=== PATIENT | male | born 1960 | race Caucasian/White ===

== ENCOUNTER 2017-06-03 16:14 | Emergency (ER) | payer BC ==
[~2017-06-03] VITALS: Ht 193 cm; Wt 142.5 kg
[~2017-06-03 16:14] MED LIST: DILA100C PO; LISI-360 PO; MELO15TA2 PO
[2017-06-03 16:39] VITALS: BP 123/57; PULSE 80; RESP 16; TEMP 98.8; O2SAT 96
[2017-06-03] MEDS ORDERED: LISI10TA3 PO (18:39)
[2017-06-03] MEDS ORDERED: PHEN200C3 PO (18:39)
--- NOTE | 2017-06-03 18:44 | PD ---
HPI Chief Complaint: Fall Time Seen by Provider: 18:37 Travel History International Travel<30 days: No Contact w/Intl Traveler<30days: No Traveled to known affect area: No History of Present Illness HPI 56-year-old male patient with history of what happened, he thinks he passed out. He also states that he injured his right shoulder and right knee. However , he is ambulatory in the ER. He denies any chest pains, trouble breathing, or other issues or injuries. Modifying Factors: None Associated Signs & Symptoms: Fall, head injury, right shoulder knee injury Risk Factors: None PFSH Past Medical History Seizures: Yes (pt on dilantin) Social History Alcohol Use: Yes (OCCASSIONAL) Tobacco Use: No Substance Use: No Allergies-Medications (Allergen,Severity, Reaction): Coded Allergies: No Known Allergies (Verified Adverse Reaction, Unknown, 06/03/17) Reported Meds & Prescriptions Reported Meds & Active Scripts Active Reported Phenytoin Extended 200 Mg Cap 200 Mg PO TID Lisinopril 10 Mg Tab 10 Mg PO DAILY Review of Systems Except as stated in HPI: all other systems reviewed are Neg Physical Exam Narrative GENERAL: Well-developed large white middle-aged male patient currently and mild distress. Awake and oriented 3. SKIN: Focused skin assessment warm/dry. HEAD: 3 cm laceration to the right forehead. Normocephalic. EYES: Pupils equal and round. No scleral icterus. No injection or drainage. ENT: No nasal bleeding or discharge. Mucous membranes pink and moist. NECK: Trachea midline. No JVD. Supple. No midline C-spine tenderness. CARDIOVASCULAR: Regular rate and rhythm. No murmur appreciated. RESPIRATORY: No accessory muscle use. Clear to auscultation. Breath sounds equal bilaterally. GASTROINTESTINAL: Abdomen soft, non-tender, nondistended. Hepatic and splenic margins not palpable. MUSCULOSKELETAL: No obvious deformities. No clubbing. No cyanosis. No edema. EXTREMITIES: No clubbing, cyanosis, or edema. No joint tenderness, effusion, or edema noted. Abrasions over the right knee and right shoulder area, nontender to palpation with nontender range of motion with no obvious deformities NEUROLOGICAL: Awake and alert. No obvious cranial nerve deficits. Motor grossly within normal limits. Normal speech. PSYCHIATRIC: Appropriate mood and affect; insight and judgment normal. Data Data Last Documented VS Vital Signs Date Time Temp Pulse Resp B/P (MAP) Pulse Ox O2 Delivery O2 Flow Rate FiO2 06/03/17 19:05 96 Room Air 06/03/17 16:39 98.8 80 16 123/57 (79) Orders Orders Electrocardiogram (06/03/17 18:37) Complete Blood Count With Diff (06/03/17 18:37) Comprehensive Metabolic Panel (06/03/17 18:37) Troponin I (06/03/17 18:37) Ct Brain W/O Iv Contrast(Rout) (06/03/17 18:37) Ecg Monitoring (06/03/17 18:37) Iv Access Insert/Monitor (06/03/17 18:37) Oximetry (06/03/17 18:37) Sodium Chloride 0.9% Flush (Ns Flush) (06/03/17 18:45) Knee, Complete (4vws) (06/03/17 18:37) Shoulder, Complete (>2vws) (06/03/17 18:37) Labs Laboratory Tests Test 06/03/17 18:50 White Blood Count 14.9 TH/MM3 Red Blood Count 5.09 MIL/MM3 Hemoglobin 14.5 GM/DL Hematocrit 44.2 % Mean Corpuscular Volume 86.8 FL Mean Corpuscular Hemoglobin 28.4 PG Mean Corpuscular Hemoglobin Concent 32.7 % Red Cell Distribution Width 13.6 % Platelet Count 245 TH/MM3 Mean Platelet Volume 7.3 FL Neutrophils (%) (Auto) 88.6 % Lymphocytes (%) (Auto) 5.9 % Monocytes (%) (Auto) 4.3 % Eosinophils (%) (Auto) 0.7 % Basophils (%) (Auto) 0.5 % Neutrophils # (Auto) 13.2 TH/MM3 Lymphocytes # (Auto) 0.9 TH/MM3 Monocytes # (Auto) 0.6 TH/MM3 Eosinophils # (Auto) 0.1 TH/MM3 Basophils # (Auto) 0.1 TH/MM3 CBC Comment DIFF FINAL Differential Comment MDM Medical Decision Making Medical Screen Exam Complete: Yes Emergency Medical Condition: Yes Medical Record Reviewed: Yes Interpretation(s) EKG shows NSR, no ST elevation or depression, and no arrhythmias. No significant T-wave inversions. Differential Diagnosis Head injury, forehead laceration, right knee and shoulder injury: Contusions versus concussion versus intracranial injuries versus fractures Narrative Course X-rays and CAT scans have been ordered for the patient. Lab work was also ordered since it is unclear whether he had a syncopal episode or simply tripped and fell. Physician Communication Physician Communication Case is signed out to Dr. Taylor at 7 PM pending workup. Diagnosis Primary Impression: Laceration of forehead without complication Additional Impressions: Abrasion of knee, right Shoulder contusion Condition: Stable Thea Ambrosio MD Jun 03, 2017 18:44
[2017-06-03] MEDS ORDERED: SODIUM CHLORIDE 0.9% FLUSH 10 ML FLUSH IVF PRN (18:45)
[2017-06-03 19:03] LABS: AUTOMATED NEUTROPHIL # 13.2 TH/MM3 (1.8-7.7); BASOPHIL # 0.1 TH/MM3 (0-0.2); BASOPHIL % 0.5 % (0.0-2.0); EOSINOPHIL # 0.1 TH/MM3 (0-0.4); EOSINOPHIL % 0.7 % (0.0-4.0); HEMATOCRIT 44.2 % (39.0-51.0); HEMOGLOBIN 14.5 GM/DL (13.0-17.0); LYMPH % 5.9 % (9.0-44.0); LYMPHOCYTE # 0.9 TH/MM3 (1.0-4.8); MEAN CELL VOLUME 86.8 FL (80.0-100.0); MEAN CORPUSCULAR HEMOGLOBIN 28.4 PG (27.0-34.0); MEAN CORPUSCULAR HGB CONC 32.7 % (32.0-36.0); MEAN PLATELET VOLUME 7.3 FL (7.0-11.0); MONO % 4.3 % (0.0-8.0); MONOCYTE # 0.6 TH/MM3 (0-0.9); NEUT % 88.6 % (16.0-70.0); PLATELET COUNT 245 TH/MM3 (150-450); RED BLOOD COUNT 5.09 MIL/MM3 (4.50-5.90); RED CELL DISTRIBUTION WIDTH 13.6 % (11.6-17.2); WHITE BLOOD COUNT 14.9 TH/MM3 (4.0-11.0)
[2017-06-03 19:05] VITALS: O2SAT 96
[2017-06-03 19:10] VITALS: BP 131/66; PULSE 69; RESP 18; O2SAT 98
[2017-06-03 19:12] LABS: CHLORIDE 104 MEQ/L (98-107); SODIUM (NA) 138 MEQ/L (136-145)
[2017-06-03 19:15] LABS: CALCIUM 8.5 MG/DL (8.5-10.1)
[2017-06-03 19:16] LABS: ALBUMIN 3.5 GM/DL (3.4-5.0); BICARBONATE 26.9 MEQ/L (21.0-32.0); BLOOD UREA NITROGEN 21 MG/DL (7-18); GLUCOSE,RANDOM 93 MG/DL (74-106)
[2017-06-03 19:19] LABS: ALT (GPT) 31 U/L (12-78); AST (GOT) 24 U/L (15-37); CREATININE 0.84 MG/DL (0.60-1.30); GLOMERULAR FILTRATION RATE 94 ML/MIN (>89)
[2017-06-03 19:20] LABS: TOTAL BILIRUBIN ADULT 0.2 MG/DL (0.2-1.0); TOTAL PROTEIN 7.6 GM/DL (6.4-8.2)
[2017-06-03 19:22] LABS: ALKALINE PHOSPHATASE 102 U/L (45-117)
--- NOTE | 2017-06-03 19:22 | PD ---
Physical Exam Date Seen by Provider: Jun 03, 2017 Time Seen by Provider: 19:17 Narrative Accepted in transfer of care from Dr Ambrosio GENERAL: Well-developed well-nourished male no acute distress or respiratory distress alert and oriented to person place time and events GCS 15 SKIN: Warm and dry. Laceration repair to the right forehead and abrasion to the right knee HEAD: Normocephalic. No scalp soft tissue swelling abrasion hematoma or bony abnormality. EYES: No scleral icterus. No injection or drainage. Pupils equal round reactive to light extra ocular muscles intact. NECK: Supple, trachea midline. No JVD or lymphadenopathy. No midline tenderness to direct palpation along the cervical spine and no bony step-off. CARDIOVASCULAR: Regular rate and rhythm without murmurs, gallops, or rubs. RESPIRATORY: Breath sounds equal bilaterally. No accessory muscle use. Lung sounds are clear to auscultation bilaterally. Chest wall nontender to direct palpation. GASTROINTESTINAL: Abdomen soft, non-tender, nondistended. MUSCULOSKELETAL: No cyanosis, or edema. 5/5 hardwood floor refinisher strength bilaterally and bilateral lower extremity strength. BACK: Nontender without obvious deformity. No CVA tenderness. Data Data Last Documented VS Vital Signs Date Time Temp Pulse Resp B/P (MAP) Pulse Ox O2 Delivery O2 Flow Rate FiO2 06/03/17 19:10 69 18 131/66 (87) 98 Room Air 06/03/17 16:39 98.8 Orders Orders Electrocardiogram (06/03/17 18:37) Complete Blood Count With Diff (06/03/17 18:37) Comprehensive Metabolic Panel (06/03/17 18:37) Troponin I (06/03/17 18:37) Ct Brain W/O Iv Contrast(Rout) (06/03/17 18:37) Ecg Monitoring (06/03/17 18:37) Iv Access Insert/Monitor (06/03/17 18:37) Oximetry (06/03/17 18:37) Sodium Chloride 0.9% Flush (Ns Flush) (06/03/17 18:45) Knee, Complete (4vws) (06/03/17 18:37) Shoulder, Complete (>2vws) (06/03/17 18:37) Lidocaine 1% Inj (50 Ml) (Xylocaine 1% I (06/03/17 20:00) Wound Care (06/03/17 19:59) Tetanus/Diphtheria Tox Adult (Tetanus/Di (06/03/17 20:15) Urinalysis - C+S If Indicated (06/03/17 20:04) Support Splint (06/03/17 20:04) Ed Discharge Order (06/03/17 20:37) Labs Laboratory Tests Test 06/03/17 18:50 06/03/17 20:23 White Blood Count 14.9 TH/MM3 Red Blood Count 5.09 MIL/MM3 Hemoglobin 14.5 GM/DL Hematocrit 44.2 % Mean Corpuscular Volume 86.8 FL Mean Corpuscular Hemoglobin 28.4 PG Mean Corpuscular Hemoglobin Concent 32.7 % Red Cell Distribution Width 13.6 % Platelet Count 245 TH/MM3 Mean Platelet Volume 7.3 FL Neutrophils (%) (Auto) 88.6 % Lymphocytes (%) (Auto) 5.9 % Monocytes (%) (Auto) 4.3 % Eosinophils (%) (Auto) 0.7 % Basophils (%) (Auto) 0.5 % Neutrophils # (Auto) 13.2 TH/MM3 Lymphocytes # (Auto) 0.9 TH/MM3 Monocytes # (Auto) 0.6 TH/MM3 Eosinophils # (Auto) 0.1 TH/MM3 Basophils # (Auto) 0.1 TH/MM3 CBC Comment DIFF FINAL Differential Comment Blood Urea Nitrogen 21 MG/DL Creatinine 0.84 MG/DL Random Glucose 93 MG/DL Total Protein 7.6 GM/DL Albumin 3.5 GM/DL Calcium Level 8.5 MG/DL Alkaline Phosphatase 102 U/L Aspartate Amino Transf (AST/SGOT) 24 U/L Alanine Aminotransferase (ALT/SGPT) 31 U/L Total Bilirubin 0.2 MG/DL Sodium Level 138 MEQ/L Potassium Level 4.3 MEQ/L Chloride Level 104 MEQ/L Carbon Dioxide Level 26.9 MEQ/L Anion Gap 7 MEQ/L Estimat Glomerular Filtration Rate 94 ML/MIN Troponin I LESS THAN 0.02 NG/ML Urine Color YELLOW Urine Turbidity CLEAR Urine pH 6.0 Urine Specific [place] 1.025 Urine Protein NEG mg/dL Urine Glucose (UA) NEG mg/dL Urine Ketones TRACE mg/dL Urine Occult Blood SMALL Urine Nitrite NEG Urine Bilirubin NEG Urine Urobilinogen 0.2 MG/DL Urine Leukocyte Esterase NEG Urine RBC 0-3 /hpf Urine WBC 0-2 /hpf Urine Squamous Epithelial Cells 0-5 /hpf Microscopic Urinalysis Comment CULT NOT INDICATED MDM Medical Record Reviewed: Yes Supervised Visit with BRANDEN: No Interpretation(s) EKG: Normal sinus rhythm rate [address] elevation injury pattern or ectopy noted, normal axis and intervals nonspecific Q-wave inferiorly QT 367 ms/QTc 337 ms CBC & BMP Diagram 06/03/17 18:50 Total Protein 7.6, Albumin 3.5, Calcium Level 8.5, Alkaline Phosphatase 102, Aspartate Amino Transf (AST/SGOT) 24, Alanine Aminotransferase (ALT/SGPT) 31, Total Bilirubin 0.2 Vital Signs Date Time Temp Pulse Resp B/P (MAP) Pulse Ox O2 Delivery O2 Flow Rate FiO2 06/03/17 19:10 69 18 131/66 (87) 98 Room Air 06/03/17 19:05 96 Room Air 06/03/17 18:39 96 Room Air 06/03/17 16:39 98.8 80 16 123/57 (79) 96 troponin I: less than 2, not elevated Right knee xr: CONCLUSION: 1. Moderate osteoarthritis. No acute findings. Glen Acosta MD on June 03, 2017 at 19:54 Board Certified Radiologist. This report was verified electronically. R shoulder xr: CONCLUSION: 1. Moderate osteoarthritis. No acute findings. Glen Acosta MD on June 03, 2017 at 19:54 Board Certified Radiologist. This report was verified electronically. CT brain w/o: CONCLUSION: 1. No acute intracranial abnormalities. Right frontal scalp hematoma. Mildly prominent cisterna magna. Glen Acosta MD on June 03, 2017 at 20:15 Board Certified Radiologist. This report was verified electronically. UA: wnl Differential Diagnosis Accepted in transfer of care from Dr Ambrosio; please refer to her dictation Narrative Course Accepted in transfer of care from Dr Ambrosio; follow up labs imaging and disposition @ 7:[address] Patient reports that he was walking out of the bathroom and does not know if he had a repeat a as a second induration stare or if he tripped on a rug or if she had a fainting spell but states he feels back to normal at this time was not symptomatic prior to the event and was able to get up on his own. Patient denies any confusion headache visual disturbance neck pain chest pain palpitations shortness of breath sweats nausea vomiting abdominal pain chest wall pain back pain or extremity pain other than discomfort to the right shoulder and abrasion to the right knee. Patient states that he does not know the status of his last tetanus booster. Sister who lives with him at bedside states he has been compliant with his medications as does not feel that he needs to have a level checked regarding his Dilantin. Patient does not drink alcohol. Sister did not see or witnessed event but states that it appears that he did have a fall as he left the bathroom. Patient may have had a vasovagal/ post micturition syncopal episode. There is no tongue trauma no bladder or bowel incontinence. Right knee x-ray reveals no acute abnormalities just chronic arthritic changes have a right shoulder x-ray does reveal a minimally displaced distal clavicle fracture. CT brain noncontrast reading remains pending. CT brain noncontrast reveals no acute intracranial process or bony abnormality; patient is stable for outpatient management. Patient is released in the care of his sister with whom he lives at all times and sister is aware that she will need to follow head injury precautions 24 hours Diagnosis Primary Impression: Laceration of forehead without complication Qualified Codes: S01.81XA - Laceration without foreign body of other part of head, initial encounter Additional Impressions: Shoulder contusion Qualified Codes: S40.011A - Contusion of right shoulder, initial encounter Abrasion of knee, right Qualified Codes: S80.211A - Abrasion, right knee, initial encounter Closed right clavicular fracture Qualified Codes: S42.031A - Displaced fracture of lateral end of right clavicle, initial encounter for closed fracture Minor closed head injury Referrals: Primary Care Physician 2 days Patient Instructions: General Instructions Additional Instruction: Follow wound care instructions with wound check at 2 days and suture removal at 5-7 days Follow head injury precautions 24 hours Do not drink alcoholic beverages Continue chronic medications as chronically prescribed Increase fluid hydration Apply ice pack intermittently to areas of soft tissue swelling as needed for the first 12-24 hours Wear sling Return to the emergency department for any concerns or change in condition May take as tolerated acetaminophen and/or ibuprofen per package directions as needed for discomfort or for fever 100.4F or greater Disposition: 01 DISCHARGE HOME Condition: Stable Marylin Taylor MD Jun 03, 2017 19:22
[2017-06-03 19:24] LABS: TROPONIN I LESS THAN 0.02 NG/ML (0.02-0.05)
--- NOTE | 2017-06-03 19:58 | RADRPT ---
EXAM DATE/TIME: 06/03/2017 18:45 [facility] COMPARISON: No previous studies available for comparison. INDICATIONS : Right patella abrasion post fall. MEDICAL HISTORY : Seizures SURGICAL HISTORY : Left hand surgery ENCOUNTER: Initial ACUITY: 1 day PAIN SCORE: 5/10 LOCATION: Right knee FINDINGS: Four view examination of the right knee demonstrates no evidence of fracture or dislocation. Bony mi neralization is normal. The articular surfaces are intact. The suprapatellar soft tissues have a no rmal configuration. CONCLUSION: 1. Moderate osteoarthritis. No acute findings. Glen Acosta MD on June 03, 2017 at 19:54 Board Certified Radiologist. This report was verified electronically.
--- NOTE | 2017-06-03 19:59 | PD ---
Physical Exam Time Seen by Provider: 19:57 Narrative I was asked to repair the laceration to the patient's forehead. Data Data Last Documented VS Vital Signs Date Time Temp Pulse Resp B/P (MAP) Pulse Ox O2 Delivery O2 Flow Rate FiO2 06/03/17 19:10 69 18 131/66 (87) 98 Room Air 06/03/17 16:39 98.8 Orders Orders Electrocardiogram (06/03/17 18:37) Complete Blood Count With Diff (06/03/17 18:37) Comprehensive Metabolic Panel (06/03/17 18:37) Troponin I (06/03/17 18:37) Ct Brain W/O Iv Contrast(Rout) (06/03/17 18:37) Ecg Monitoring (06/03/17 18:37) Iv Access Insert/Monitor (06/03/17 18:37) Oximetry (06/03/17 18:37) Sodium Chloride 0.9% Flush (Ns Flush) (06/03/17 18:45) Knee, Complete (4vws) (06/03/17 18:37) Shoulder, Complete (>2vws) (06/03/17 18:37) Labs Laboratory Tests Test 06/03/17 18:50 White Blood Count 14.9 TH/MM3 Red Blood Count 5.09 MIL/MM3 Hemoglobin 14.5 GM/DL Hematocrit 44.2 % Mean Corpuscular Volume 86.8 FL Mean Corpuscular Hemoglobin 28.4 PG Mean Corpuscular Hemoglobin Concent 32.7 % Red Cell Distribution Width 13.6 % Platelet Count 245 TH/MM3 Mean Platelet Volume 7.3 FL Neutrophils (%) (Auto) 88.6 % Lymphocytes (%) (Auto) 5.9 % Monocytes (%) (Auto) 4.3 % Eosinophils (%) (Auto) 0.7 % Basophils (%) (Auto) 0.5 % Neutrophils # (Auto) 13.2 TH/MM3 Lymphocytes # (Auto) 0.9 TH/MM3 Monocytes # (Auto) 0.6 TH/MM3 Eosinophils # (Auto) 0.1 TH/MM3 Basophils # (Auto) 0.1 TH/MM3 CBC Comment DIFF FINAL Differential Comment Blood Urea Nitrogen 21 MG/DL Creatinine 0.84 MG/DL Random Glucose 93 MG/DL Total Protein 7.6 GM/DL Albumin 3.5 GM/DL Calcium Level 8.5 MG/DL Alkaline Phosphatase 102 U/L Aspartate Amino Transf (AST/SGOT) 24 U/L Alanine Aminotransferase (ALT/SGPT) 31 U/L Total Bilirubin 0.2 MG/DL Sodium Level 138 MEQ/L Potassium Level 4.3 MEQ/L Chloride Level 104 MEQ/L Carbon Dioxide Level 26.9 MEQ/L Anion Gap 7 MEQ/L Estimat Glomerular Filtration Rate 94 ML/MIN Troponin I LESS THAN 0.02 NG/ML [facility] Supervised Visit with BRANDEN: Yes Narrative Course I was asked to repair the laceration to the patient's forehead. See my procedure note for laceration repair. Procedures Procedure Narrative LACERATION LOCATION: Right forehead LENGTH: 0.5 cm NUMBER OF STITCHES/MEL: 3 simple interrupted sutures REPAIR: The area of the laceration was prepped with Betadine and sterilely draped. The laceration was infiltrated with 1% lidocaine. The wound was copiously irrigated and explored without evidence of foreign body, tendon injury or neurovascular injury. The wound was closed using 6-0 Prolene. This was a single layer repair. A sterile dressing was applied. The patient was advised to keep the dressing clean and dry. Patient tolerated the procedure well. Diagnosis Primary Impression: Laceration of forehead without complication Additional Impressions: Shoulder contusion Abrasion of knee, right Condition: Stable Pippa Mendieta Jun 03, 2017 19:58
--- NOTE | 2017-06-03 19:59 | RADRPT ---
EXAM DATE/TIME: 06/03/2017 18:45 [facility] COMPARISON: No previous studies available for comparison. INDICATIONS : Right shoulder pain post fall. MEDICAL HISTORY : Seizures SURGICAL HISTORY : Left hand surgery ENCOUNTER: Initial ACUITY: 1 day PAIN SCORE: 5/10 LOCATION: Right upper extremity FINDINGS: There is a mildly displaced distal right clavicle fracture. Mild osteoarthritis of the right shoulder . CONCLUSION: 1. Mildly displaced distal right clavicle fracture. Glen Acosta MD on June 03, 2017 at 19:55 Board Certified Radiologist. This report was verified electronically.
[2017-06-03] MEDS ORDERED: LIDOCAINE HCL 1% 50 ML VIAL INFIL ONE (20:00)
[2017-06-03] MEDS ORDERED: TETANUS/DIPHTHERIA TOXOID ADULT 0.5 ML VIAL IM ONE (20:15)
--- NOTE | 2017-06-03 20:19 | RADRPT ---
EXAM DATE/TIME: 06/03/2017 19:19 [facility] COMPARISON: No previous studies available for comparison. INDICATIONS : Syncope. Fell and hit right forehead. RADIATION DOSE: 65.02 CTDIvol (mGy) MEDICAL HISTORY : Seizures. Hypertension. SURGICAL HISTORY : None. ENCOUNTER: Initial ACUITY: 1 day PAIN SCALE: 2/10 LOCATION: Right cranial TECHNIQUE: Multiple contiguous axial images were obtained of the head. Using automated exposure control and adj ustment of the mA and/or kV according to patient size, radiation dose was kept as low as reasonably a chievable to obtain optimal diagnostic quality images. DICOM format image data is available electro nically for review and comparison. FINDINGS: CEREBRUM: The ventricles are normal for age. No evidence of midline shift, mass lesion, hemorrhage or acute in farction. No extra-axial fluid collections are seen. POSTERIOR FOSSA: The cerebellum and brainstem are intact. The 4th ventricle is midline. The cerebellopontine angle i s unremarkable. EXTRACRANIAL: The visualized portion of the orbits is intact. SKULL: The calvaria is intact. No evidence of skull fracture. CONCLUSION: 1. No acute intracranial abnormalities. Right frontal scalp hematoma. Mildly prominent cisterna magn a. Glen Acosta MD on June 03, 2017 at 20:15 Board Certified Radiologist. This report was verified electronically.
[2017-06-03 20:27] LABS: BILIRUBIN, URINE NEG (NEG); BLOOD, URINE SMALL (NEG); GLUCOSE,URINE NEG (NEG); KETONE, URINE TRACE mg/dL (NEG); NITRITE,URINE NEG (NEG); URINE COLOR YELLOW (YELLW/STRAW); URINE LEUKOCYTE ESTERASE NEG (NEG)
[2017-06-03 20:35] LABS: RBC, URINE 0-3 /hpf (0-3); SQUAMOUS EPITHELIAL CELL URINE 0-5 /hpf (0-5); WBC, URINE 0-2 /hpf (0-5)
[2017-06-03 21:13] VITALS: BP 124/69
--- NOTE | 2017-06-04 19:09 | EKG ---
Date Performed: 06/03/2017 Time Performed: 19:05:01 PTAGE: 56 years EKG: Sinus rhythm WITH SINUS ARRHYTHMIA PROBABLE INFERIOR MYOCARDIAL INFARCTION ABNORMAL ECG NO PREVIOUS TRACING DOCTOR: Juliana Booth Interpretating Date/Time 06/04/2017 19:07:53
== END 2017-06-03 21:15 | disposition home or self-care (01) ==
LOC: PHED 16:14
DX: S01.81XA Laceration without foreign body of other part of head, initial encounter (principal); S42.031A Displaced fracture of lateral end of right clavicle, initial encounter for closed fracture; S09.8XXA Other specified injuries of head, initial encounter; S80.211A Abrasion, right knee, initial encounter; S40.011A Contusion of right shoulder, initial encounter; R94.31 Abnormal electrocardiogram [ECG] [EKG]; G40.909 Epilepsy, unspecified, not intractable, without status epilepticus; Z23 Encounter for immunization; W19.XXXA Unspecified fall, initial encounter; Y92.002 Bathroom of unspecified non-institutional (private) residence as the place of occurrence of the external cause
CPT/HCPCS: 12011; 70450; 73030; 73564; 80053; 81001; 84484; 85025; 90471; 90714; 93005